=== PATIENT | male | born 1995 | race Two or more races ===

== ENCOUNTER 2023-09-14 08:51 | Outpatient (OUT) | payer OTHER, SELFPAY ==
--- NOTE | 2023-09-14 09:28 | XR_ITS ---
The [address] [address] Patient Name: JANNIE BROWN MRN: [id number] date: 1995 Sex: M Assigned Patient Location: [facility] Current Patient Location: Accession/Order Number: [id number] Exam Date: 09/14/2023 09:30 Report Date: 09/15/2023 07:40 At the request of: DAWSON CUNNINGHAM Procedure: XR shoulder RT min 2V EXAM: XR shoulder RT min 2V HISTORY: Shoulder Impingement M75.40 COMPARISON: None. TECHNIQUE: Routine views of the XR shoulder RT min 2V FINDINGS/ XR/XR shoulder RT min 2V IMPRESSION: 1. No acute fractures. 2. Unremarkable soft tissues. 3. Normal joint spacing. Electronically authenticated by: BRENNA THOMAS Date: 09/15/2023 07:40
== END 2023-09-14 08:52 | disposition home or self-care (01) ==
LOC: RAD 09:10
PROVIDERS: PCP Family Medicine; Visit Provider Family Medicine
DX: M75.40 Impingement syndrome of unspecified shoulder (principal)
CPT/HCPCS: 73030